=== PATIENT | female | born 1990 | race American Indian/Alaskan Native ===

== ENCOUNTER 2020-02-10 03:19 | Emergency (ER) | payer MEDICAID ==
[2020-02-10 07:42] VITALS: BP 134/88
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
== END 2020-02-10 08:41 | disposition home or self-care (01) ==
LOC: ED 03:19
DX: M79.602 Pain in left arm (principal); M79.601 Pain in right arm; M54.5 Low back pain; M79.605 Pain in left leg; M79.604 Pain in right leg; J45.909 Unspecified asthma, uncomplicated; V49.59XA Passenger injured in collision with other motor vehicles in traffic accident, initial encounter; Y93.89 Activity, other specified; Y92.410 Unspecified street and highway as the place of occurrence of the external cause; Y99.8 Other external cause status
CPT/HCPCS: 99282